=== PATIENT | male | born 1985 | race Caucasian/White ===

== ENCOUNTER 2020-01-19 00:35 | Emergency (ER) | payer OTHER ==
[2020-01-19] MEDS ORDERED: Orphenadrine 100 MG Tab.ER PO STA (02:39)
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
== END 2020-01-19 03:14 | disposition home or self-care (01) ==
LOC: JD.ED 00:35
DX: M62.830 Muscle spasm of back (principal); E66.9 Obesity, unspecified; Z68.33 Body mass index [BMI] 33.0-33.9, adult
CPT/HCPCS: 99283; A9270